=== PATIENT | female | born 1965 | race Caucasian/White ===

== ENCOUNTER 2017-01-10 16:10 | Emergency (ER) | payer BC ==
[~2017-01-10] VITALS: Ht 162.6 cm; Wt 84.8 kg
[2017-01-10 16:28] VITALS: BP 111/72
--- NOTE | 2017-01-10 17:05 | PHYS DOC ---
Past History Past Medical History: Asthma, High Cholesterol, Hypertension, Stroke Past Surgical History: No Surgical History Alcohol Use: Occasionally Drug Use: None Adult General Chief Complaint Chief Complaint: SORE THROAT HPI HPI Patient is a 51-year-old female who comes in with the complaint of severe sore throat, worsening over the past 2 months. It has not been intermittent, it has been constant for 2 months. It hurts to swallow, she feels like she can't swallow unless she checks her chin down toward her chest. It hurts to talk and she has just been whispering. She has seen her doctor, Markus Carmichael, and she had a course of prednisone which didn't help. She now hasn't appointment coming up with ENT on January 21 but she just can't wait any longer. Patient denies fever or chills, denies diabetes. She's never had this exact problem before. She's had sinus infection in the past which made her have a sore throat and hoarseness but this is different. Review of Systems Review of Systems Constitutional: Denies fever or chills [] HENT: Denies nasal congestion or runny nose or sneezing Respiratory: Denies cough or shortness of breath [] Cardiovascular: Denies chest pain Musculoskeletal: Denies back pain or joint pain [] Integument: Denies rash or skin lesions [] Neurologic: Denies headache, focal weakness or sensory changes [] Allergies Allergies Allergies Coded Allergies Type Severity Reaction Last Updated Verified No Known Drug Allergies 03/25/16 No Physical Exam Physical Exam Constitutional: Well developed, well nourished, no acute distress, non-toxic appearance. Ambulatory into exam room, speaks in a whisper, handling her secretions normally, she does flex her neck to swallow. HENT: Normocephalic, atraumatic, bilateral external ears normal, bilateral TMs normal, oropharynx moist, no oral exudates, no oral lesions, no significant erythema, no pharyngeal abnormality on inspection, nose normal. [] Eyes: conjunctiva normal, no discharge. [] Neck: No obvious swelling on inspection, no masses. No abnormality to palpation except that there is tenderness anterior to the larynx on palpation. No masses or crepitance. Skin: Warm, dry, no erythema, no rash. [] Extremities: No tenderness, no cyanosis, no clubbing, ROM intact, no edema. [] Neurologic: Alert and oriented X 3, normal motor function, normal sensory function, no focal deficits noted. [] Current Patient Data Vital Signs Vital Signs Date Time Temp Pulse Resp B/P Pulse Ox O2 Delivery O2 Flow Rate FiO2 01/10/17 16:28 98.4 80 16 98 Room Air EKG EKG [] Radiology/Procedures Radiology/Procedures FINDINGS Evaluation of vascular structures as well as for lymphadenopathy is limited by lack of intravenous contrast. Bilateral parotid and submandibular glands appear symmetric. Left thyroid lobe appears small. Airway is patent. No convincing neck fluid collections or neck soft tissue masses are seen. No neck lymphadenopathy is appreciated. There is evidence of bilateral maxillary sinus surgery. Left maxillary sinus disease is seen. IMPRESSION 1. Limited by lack of intravenous contrast. 2. No acute abnormality identified in the neck. 3. Left maxillary sinus disease. [] Course & Med Decision Making Course & Med Decision Making Pertinent Labs and Imaging studies reviewed. (See chart for details) 51-year-old female who has had a increasingly severe sore throat for 2 months now and is speaking in a whisper. I advised her at this time we will check a CT scan of the neck soft tissues and she is agreeable to that plan. Pt up asking for a drink after CT, seems to be talking a little better. Ct scan negative for acute findings. Did show lt max sinusitis. Will offer her a course of Augmentin. She has already tried GERD/stomach acid treatment. [] Dragon Disclaimer Dragon Disclaimer This chart was dictated in whole or in part using Voice Recognition software in a busy, high-work load, and often noisy Emergency Department environment. It may contain unintended and wholly unrecognized errors or omissions. Departure Departure: Impression: Primary Impression: Sore throat and laryngitis Additional Impression: Maxillary sinusitis Disposition: HOME, SELF-CARE Condition: STABLE Referrals: PCP,NO (PCP) Patient Instructions: Sore Throat, [id number] Scripts Amoxicillin/Potassium Clav (Augmentin 875-125 Tablet)1 Each Tablet1 Tab PO BID # 20 TAB for sinus infection Prov:KASANDRA SHARMA MD 01/10/17 Problem Qualifiers KASANDRA SHARMA MD Jan 10, 2017 17:05
--- NOTE | 2017-01-10 18:17 | RAD ---
PROCEDURE CT neck without intravenous contrast. HISTORY Sore throat and difficulty swallowing and coughing for [address] of the neck was performed. Axial, sagittal, coronal reconstructions were obtained. Exposure: One or more of the following individualized dose reduction techniques were utilized for this examination: 1. Automated exposure control. 2. Adjustment of the mA and/or kV according to patient size. 3. Use of iterative reconstruction technique. COMPARISON None. FINDINGS Evaluation of vascular structures as well as for lymphadenopathy is limited by lack of intravenous contrast. Bilateral parotid and submandibular glands appear symmetric. Left thyroid lobe appears small. Airway is patent. No convincing neck fluid collections or neck soft tissue masses are seen. No neck lymphadenopathy is appreciated. There is evidence of bilateral maxillary sinus surgery. Left maxillary sinus disease is seen. IMPRESSION 1. Limited by lack of intravenous contrast. 2. No acute abnormality identified in the neck. 3. Left maxillary sinus disease. Electronically signed by: Ten Khan MD (Jan 10, 2017 18:16:12)
[2017-01-10] MEDS ORDERED: AMOX1TAB61 PO (18:27)
== END 2017-01-10 18:41 | disposition home or self-care (01) ==
LOC: ER 16:10
DX: J02.9 Acute pharyngitis, unspecified (principal); J04.0 Acute laryngitis; J32.0 Chronic maxillary sinusitis; J45.909 Unspecified asthma, uncomplicated; E78.00 Pure hypercholesterolemia, unspecified; I10 Essential (primary) hypertension; Z86.73 Personal history of transient ischemic attack (TIA), and cerebral infarction without residual deficits
CPT/HCPCS: 70490; 99284-25